=== PATIENT | female | born 1990 | race Caucasian/White ===

== ENCOUNTER 2022-09-11 10:40 | Emergency (ER) | payer MEDICAID ==
[~2022-09-11] VITALS: Ht 172.7 cm; Wt 76.2 kg
[2022-09-11 10:54] VITALS: BP 140/93
--- NOTE | 2022-09-11 11:19 | NUR ---
30 ALFRED CARVAJAL FOR PREBOOK MEDICAL CLEARANCE. OFFICER STATES "THEY HAD A USE OF FORCE" AND PATIENT LATER STATED SHE IS 8 MONTHS . PATIENT DENIES PAIN OR VAGINAL BLEEDING.
[2022-09-11 11:54] VITALS: BP 140/93
--- NOTE | 2022-09-11 11:54 | NUR ---
PATIENT [facility] POLICE DEPT. PATIENT EXAMINED BY DR. MORGAN. PATIENT MEDICALLY CLEARED AND RELEASED IN CUSTODY IN STABLE CONDITION. ORIGINAL PRE-BOOK FORM GIVEN TO OFFICER DIAMOND.
== END 2022-09-11 11:54 ==
LOC: MED 10:40
CPT/HCPCS: 99283